=== PATIENT | female | born 1935 | race Caucasian/White ===

== ENCOUNTER 2020-08-15 11:21 | Inpatient (IN) | payer OTHER ==
[2020-08-15] MEDS ORDERED: CEFTRIAXONE/SWI 1gm 1 GM/10 ML SYR ONE (12:45)
[2020-08-15] MEDS ORDERED: FAMOTIDINE 20 MG/2 ML VIAL IV ONE (12:45)
[2020-08-15] MEDS ORDERED: HYDROCORTISONE SUC 100 MG INJ ONE (12:45)
[2020-08-15] MEDS ORDERED: NA CHLORIDE 0.9% 1,000 ML ONE (12:45)
--- NOTE | 2020-08-15 12:48 | RAD REPORT ---
EXAM DESCRIPTION: CT - Head C Spine Cap Wo Con - 08/15/2020 12:20 pm CLINICAL HISTORY: Trauma, head and neck injury. Chest, abdomen and pelvis pain. PAIN COMPARISON: No comparisons TECHNIQUE: CT head without contrast. CT cervical spine without contrast with coronal and sagittal reformatted images. CT chest, abdomen and pelvis without contrast with coronal and sagittal reformatted images of the [facility] [place]. All CT scans are performed using dose optimization technique as appropriate and may include automated exposure control or mA/KV adjustment according to patient size. FINDINGS: CT HEAD WITHOUT CONTRAST: No intracranial hemorrhage, hydrocephalus or extra-axial fluid collection. Moderate generalized brain atrophy. No areas of brain edema or midline shift. Small amount fluid is seen in left maxillary antrum in the sphenoid sinus. Both mastoid air cells are clear. The calvarium is intact. CT CERVICAL SPINE WITHOUT CONTRAST: No fracture or subluxation. Prominent degenerative changes present lower cervical spine. The preverte bral soft tissues are normal in thickness.Areas of bony lucency and sclerosis noted. CT CHEST, ABDOMEN, PELVIS WITHOUT CONTRAST: NOTE: Lack of contrast is a significant limitation in the assessment of trauma related findings. Spec ifically, solid organ, vascular and bowel evaluation is significantly limited. Poorly defined areas of tree-in-bud opacity seen posterior right upper lobe and to a greater extent p osterior left upper lobe noted. Areas of nodularity also seen superior segment left lower lobe. These likely represent areas aspiration or pneumonia.Small left effusion. A mass is present in left breast 5.3 x 3.2 cm extending to the chest wall. No evidence of intra-abdominal visceral injury, free fluid or free air is seen within the above detai led limitations. Moderate retained stool in the rectum. Extensive lytic sclerotic lesions throughout the skeleton compatible extensive bony metastasis. IMPRESSION: Left breast malignancy with extensive bony metastatic disease suspected. Areas of interstitial opacities in both lungs, worse on the left, with a left pleural effusion likely represent aspiration or pneumonia.
[2020-08-15] MEDS ORDERED: FOLIC ACID 1 MG, MULTIVITAMINS INJ 10 ML, THIAMINE HCL 100 MG in NA CHLORIDE 0.9% 1,000 ML IV ONE (13:00)
--- NOTE | 2020-08-15 13:12 | RAD REPORT ---
EXAM DESCRIPTION: RAD - Chest Single View - 08/15/2020 12:41 pm CLINICAL HISTORY: COUGH Chest pain. COMPARISON: No comparisons FINDINGS: Portable technique limits examination quality. Reticular opacities are present in both lungs, greater on the left, likely representing atypical infe ction or aspiration. The heart is normal in size. Areas of sclerosis and lucency seen throughout the osseous skeleton, suspicious for metastatic disease.
[2020-08-15 13:20] LABS: Absolute Lymphocytes (CBC) 2.2 K/uL (0.7-4.9); Basophils % 0.5 % (0-1.3); Hematocrit 44.4 % (36.0-45.0); Lymphocytes % 14.4 % (15.3-44.8); MPV 8.6 fL (7.6-11.3); RBC Red Blood Cell Count 5.18 M/uL (3.86-4.86)
--- NOTE | 2020-08-15 13:54 | EDPHYS ---
Physician Documentation [facility] Name: Margot Galindo Age: 84 yrs Sex: Female : 1935 Arrival Date: 08/15/2020 Time: 11:32 Bed 18 Private MD: JOSIAS Physician Philippe Goode HPI: 08/15 12:09 This 84 yrs old Female presents to ER via EMS with complaints of on floor 7 edgar days, dehydrated, infected and left breast cancer. 12:09 The patient presents with an abscess of the left breast. Description: The affected area edgar is large, confluent, draining, erythematous, tense. 12:10 Onset: The symptoms/episode began/occurred 8 day(s) ago. Possible cause(s): unknown. edgar Modifying factors: the symptoms are alleviated by nothing, the symptoms are aggravated by nothing. Historical: - Allergies: 11:44 PENICILLINS; ss - Home Meds: 14:55 None [Active]; vg1 - PMHx: 14:55 None; vg1 - PSHx: 11:44 marcy cataract surgery; neck surgery; ss - Immunization history:: Adult Immunizations unknown. - Social history:: Smoking status: Patient denies any tobacco usage or history of. ROS: 12:11 Constitutional: Negative for fever, chills, and weight loss, Eyes: Negative for injury, edgar pain, redness, and discharge, ENT: Negative for injury, pain, and discharge, Neck: Negative for injury, pain, and swelling, Cardiovascular: Negative for chest pain, palpitations, and edema, Respiratory: Negative for shortness of breath, cough, wheezing, and pleuritic chest pain, Back: Negative for injury and pain, : Negative for injury, bleeding, discharge, and swelling, Skin: Negative for injury, rash, and discoloration, Psych: Negative for depression, anxiety, suicide ideation, homicidal ideation, and hallucinations, Allergy/Immunology: Negative for hives, rash, and allergies, Endocrine: Negative for neck swelling, polydipsia, polyuria, polyphagia, and marked weight changes. 12:11 Abdomen/GI: Positive for anorexia. 12:11 Skin: Positive for swelling, of the left breast. Exam: 12:11 Head/Face: Normocephalic, atraumatic. Eyes: Pupils equal round and reactive to light, edgar extra-ocular motions intact. Lids and lashes normal. Conjunctiva and sclera are non-icteric and not injected. Cornea within normal limits. Periorbital areas with no swelling, redness, or edema. ENT: Nares patent. No nasal discharge, no septal abnormalities noted. Tympanic membranes are normal and external auditory canals are clear. Oropharynx with no redness, swelling, or masses, exudates, or evidence of obstruction, uvula midline. Mucous membranes moist. Neck: Trachea midline, no thyromegaly or masses palpated, and no cervical lymphadenopathy. Supple, full range of motion without nuchal rigidity, or vertebral point tenderness. No Meningismus. Abdomen/GI: Soft, non-tender, with normal bowel sounds. No distension or tympany. No guarding or rebound. No evidence of tenderness throughout. Back: No spinal tenderness. No costovertebral tenderness. Full range of motion. Skin: Warm, dry with normal turgor. Normal color with no rashes, no lesions, and no evidence of cellulitis. Psych: Awake, alert, with orientation to person, place and time. Behavior, mood, and affect are within normal limits. 12:11 Constitutional: The patient appears emaciated, frail, lethargic. 12:11 Chest/axilla: Inspection: left breast fungating mass, necroitic, foul smelling, firm and fixed. 12:11 Cardiovascular: Rate: tachycardic, Rhythm: regular, Pulses: Pulses are 3+ in bilateral radial, brachial, femoral, popliteal, posterior tibial and and dorsalis pedis arteries.. Heart sounds: normal, Edema: is not appreciated, JVD: is not appreciated. 12:11 Musculoskeletal/extremity: Extremities: noted in the right arm, left arm, right leg and left leg: decreased ROM, Circulation is intact in all extremities. Sensation intact. Compartment Syndrome exam of affected extremity: is normal. 12:46 ECG was reviewed by the Attending Physician. [facility] Vital Signs: 11:44 BP 139 / 109; Pulse 121; Resp 22; Temp 97.0(TE); ss 12:00 BP 129 / 63; Pulse 63; Resp 24; Pulse Ox 86% on R/A; vg1 13:00 BP 119 / 47; Pulse 83; Resp 24; Pulse Ox 88% on R/A; vg1 13:45 BP 173 / 74; Pulse 80; Resp 22; Pulse Ox 85% on 3 lpm NC; vg1 14:00 BP 177 / 63; Pulse 56; Resp 26; Pulse Ox 100% on 15% Non-rebreather mask; vg1 14:30 BP 192 / 77; Pulse 87; Resp 24; Pulse Ox 99% on 15% Non-rebreather mask; vg1 15:00 BP 143 / 65; Pulse 90; Resp 28; Pulse Ox 99% on 15% Non-rebreather mask; vg1 15:30 BP 141 / 62; Pulse 108; Resp 28; Pulse Ox 100% on 15% Non-rebreather mask; vg1 16:00 BP 146 / 66; Pulse 111; Resp 34; Pulse Ox 98% on 15% Non-rebreather mask; vg1 MDM: 11:37 Patient medically screened. edgar 12:15 Differential diagnosis: cellulitis. Differential Diagnosis altered mental status, edgar sepsis. Differential diagnosis: contusion, multiple trauma. Data reviewed: vital signs, nurses notes, EMS record, lab test result(s), EKG, radiologic studies, CT scan, plain films. Data interpreted: transit mixer operator: rate is 121 beats/min, rhythm is regular, Pulse oximetry: on room air is 95 %. Test interpretation: by ED physician or midlevel provider: ECG, plain radiologic studies. Counseling: I had a detailed discussion with the patient and/or guardian regarding: the historical points, exam findings, and any diagnostic results supporting the discharge/admit diagnosis, lab results, radiology results, the need for further work-up and treatment in the hospital. 08/15 12:02 Order name: Basic Metabolic Panel; Complete Time: 15: [facility] 08/15 12:02 Order name: CBC with Diff [facility] 08/15 12:02 Order name: LFT's; Complete Time: 15:08 [facility] 08/15 12:02 Order name: Magnesium; Complete Time: 15:08 [facility] 08/15 12:02 Order name: NT PRO-BNP; Complete Time: 15: [facility] 08/15 12:02 Order name: PT-INR; Complete Time: 15:08 [facility] 08/15 12:02 Order name: Troponin (emerg Dept Use Only); Complete Time: 15: [facility] 08/15 12:02 Order name: CK; Complete Time: 15: [facility] 08/15 12:02 Order name: Ckmb; Complete Time: 15:08 [facility] 08/15 12:02 Order name: Lipase; Complete Time: 15:08 [facility] 08/15 12:02 Order name: Type And Screen [facility] 08/15 12:02 Order name: Blood Culture Adult (2) [facility] 08/15 12:02 Order name: Lactate; Complete Time: 14:02 [facility] 08/15 12:53 Order name: Glucose, Ancillary Testing; Complete Time: 13:39 EDMS 08/15 14:02 Order name: ABG [facility] 08/15 15:40 Order name: Urinalysis EDMS 08/15 15:41 Order name: CBC with Automated Diff EDMS 08/15 15:41 Order name: CBC with Automated Diff EDMS 08/15 15:41 Order name: Comprehensive Metabolic Panel EDMS 08/15 15:41 Order name: Comprehensive Metabolic Panel EDMS 08/15 15:41 Order name: Lactate EDMS 08/15 15:41 Order name: Lactate EDMS 08/15 15:41 Order name: Magnesium EDMS 08/15 15:41 Order name: Magnesium EDMS 08/15 15:41 Order name: Phosphorus EDMS 08/15 15:41 Order name: Phosphorus EDMS 08/15 15:41 Order name: Protime (+INR) EDMS 08/15 15:41 Order name: Protime (+INR) EDMS 08/15 15:41 Order name: PTT, Activated Partial Thromb EDMS 08/15 15:41 Order name: PTT, Activated Partial Thromb EDMS 08/15 12:02 Order name: XRAY Chest (1 view); Complete Time: 13:39 [facility] 08/15 12:02 Order name: EKG; Complete Time: 12:03 [facility] 08/15 12:02 Order name: Cardiac monitoring; Complete Time: 12:46 [facility] 08/15 12:02 Order name: EKG - Nurse/Tech; Complete Time: 12:46 [facility] 08/15 12:02 Order name: IV Saline Lock; Complete Time: 16:16 [facility] 08/15 12:02 Order name: Labs collected and sent; Complete Time: 16:16 [facility] 08/15 12:02 Order name: O2 Per Protocol; Complete Time: 16:16 [facility] 08/15 12:02 Order name: O2 Sat Monitoring; Complete Time: 16:16 [facility] 08/15 12:02 Order name: CT Traumagram (Head C Spine CAP wo con); Complete Time: 13:39 [facility] 08/15 12:03 Order name: Blood Glucose Level; Complete Time: 12:46 [facility] 08/15 13:06 Order name: Labs - recollect needed: T\T\S recollect please; Complete Time: 16:16 eb 08/15 13:41 Order name: Garg; Complete Time: 15:24 [facility] 08/15 15:40 Order name: CONS Pharmacy Consult EDNE 08/15 15:40 Order name: CONS Pharmacy Consult EDMS 08/15 15:40 Order name: CONS Pharmacy Consult EDMS 08/15 15:40 Order name: Full Liquid EDNE 08/15 17:16 Order name: ABO/RH no charge EDNE 08/15 17:50 Order name: COVID-19 [facility] 08/15 18:14 Order name: CORONAVIRUS EDNE 08/15 18:38 Order name: Manual Differential EDNE 08/15 19:18 Order name: SARS-COV-2 RT PCR EDMS EC:46 Rate is 117 beats/min. Rhythm is irregularly irregular. QRS [place] is Normal. HI interval edgar is normal. QRS interval is normal. QT interval is normal. No Q waves. T waves are Normal. No ST changes noted. Clinical impression: Atrial Fibrillation. Interpreted by me. Reviewed by me. Administered Medications: 13:17 Drug: Rocephin 1 grams Route: IV; Rate: per protocol; Site: left antecubital; vg1 13:38 Follow up: Response: No adverse reaction vg1 15:25 Follow up: IV Status: Completed infusion vg1 13:17 Drug: NS 0.9% 1000 ml Route: IV; Rate: 1 bolus; Site: left antecubital; vg1 15:25 Follow up: IV Status: Completed infusion vg1 13:17 Drug: Pepcid 20 mg Route: IVP; Site: left antecubital; vg1 13:38 Follow up: Response: No adverse reaction vg1 13:17 Drug: Solu-CORTEF 100 mg Route: IVP; Site: left antecubital; vg1 13:38 Follow up: Response: No adverse reaction vg1 13:37 Drug: Banana Bag - (NS 0.9% 1000 ml, foLIC Acid 1 mg, Thiamine 100 mg, Multivitamin 1 vg1 amp) Route: IV; Rate: 125 ml/hr; Site: left antecubital; 17:07 Follow up: IV Status: Infusion continued upon admission 14:53 Drug: Clindamycin 900 mg Route: IVPB; Infused Over: 30 mins; Site: left antecubital; vg1 15:24 Follow up: IV Status: Completed infusion; IV Intake: 50ml vg1 15:24 Drug: morphine 2 mg {Note: rass 0.} Route: IVP; Site: left antecubital; vg1 08/16 01:35 Follow up: Response: No adverse reaction vg1 08/15 15:24 Drug: Zofran (Ondansetron) 4 mg Route: IVP; Site: left antecubital; vg1 16:30 Follow up: Response: No adverse reaction vg1 17:13 Follow up: Response: No adverse reaction vg1 Disposition: 08/15/20 13:53 Hospitalization ordered by Mustapha Luu for Inpatient Admission. Preliminary diagnosis are Weakness, Rhabdomyolysis, Dehydration, Malignant neoplasm of breast of unspecified site, female, Atrial fibrillation and flutter - with RVR, Pneumonia, unspecified organism - ASPIRATION, Acute kidney failure, Hypercalcemia, Non-ST elevation (NSTEMI) myocardial infarction, Do not resuscitate. - Bed requested for Telemetry/MedSurg (Inpatient). - Status is Inpatient Admission. vg1 - Condition is Serious. - Problem is new. - Symptoms are unchanged. Signatures: Dispatcher [employer] EDAlisson Nix RN RN dw Anderson, Corey, MD MD cha Smirch, Shelby, RN RN ss Botello, Elizabeth eb Garcia, Victoria RN RN vg1 Corrections: (The following items were deleted from the chart) 13:57 13:53 Hospitalization Ordered by Mustapha Luu MD for Inpatient Admission. Preliminary [facility] diagnosis is Weakness; Rhabdomyolysis; Dehydration; Malignant neoplasm of breast of unspecified site, female; Atrial fibrillation and flutter - with RVR. Bed requested for Telemetry/MedSurg (Inpatient). Status is Inpatient Admission. Condition is Serious. Problem is new. Symptoms are unchanged. [facility] 14:05 13:57 08/15/2020 13:53 Hospitalization Ordered by Mustapha Luu MD for Inpatient edgar Admission. Preliminary diagnosis is Weakness; Rhabdomyolysis; Dehydration; Malignant neoplasm of breast of unspecified site, female; Atrial fibrillation and flutter - with RVR; Pneumonia, unspecified organism - ASPIRATION. Bed requested for Telemetry/MedSurg (Inpatient). Status is Inpatient Admission. Condition is Serious. Problem is new. Symptoms are unchanged. [facility] 14:17 14:05 08/15/2020 13:53 Hospitalization Ordered by Mustapha Luu MD for Inpatient edgar Admission. Preliminary diagnosis is Weakness; Rhabdomyolysis; Dehydration; Malignant neoplasm of breast of unspecified site, female; Atrial fibrillation and flutter - with RVR; Pneumonia, unspecified organism - ASPIRATION; Acute kidney failure. Bed requested for Telemetry/MedSurg (Inpatient). Status is Inpatient Admission. Condition is Serious. Problem is new. Symptoms are unchanged. [facility] 15:10 14:17 08/15/2020 13:53 Hospitalization Ordered by Mustapha Luu MD for Inpatient edgar Admission. Preliminary diagnosis is Weakness; Rhabdomyolysis; Dehydration; Malignant neoplasm of breast of unspecified site, female; Atrial fibrillation and flutter - with RVR; Pneumonia, unspecified organism - ASPIRATION; Acute kidney failure; Hypercalcemia. Bed requested for Telemetry/MedSurg (Inpatient). Status is Inpatient Admission. Condition is Serious. Problem is new. Symptoms are unchanged. [facility] 17:06 15:10 08/15/2020 13:53 Hospitalization Ordered by Mustapha Luu MD for Inpatient ss Admission. Preliminary diagnosis is Weakness; Rhabdomyolysis; Dehydration; Malignant neoplasm of breast of unspecified site, female; Atrial fibrillation and flutter - with RVR; Pneumonia, unspecified organism - ASPIRATION; Acute kidney failure; Hypercalcemia; Non-ST elevation (NSTEMI) myocardial infarction; Do not resuscitate. Bed requested for Telemetry/MedSurg (Inpatient). Status is Inpatient Admission. Condition is Serious. Problem is new. Symptoms are unchanged. [facility] 20:13 17:06 08/15/2020 13:53 Hospitalization Ordered by Mustapha Luu MD for Inpatient Admission. Preliminary diagnosis is Weakness; Rhabdomyolysis; Dehydration; Malignant neoplasm of breast of unspecified site, female; Atrial fibrillation and flutter - with RVR; Pneumonia, unspecified organism - ASPIRATION; Acute kidney failure; Hypercalcemia; Non-ST elevation (NSTEMI) myocardial infarction; Do not resuscitate. Bed requested for [facility] ER HOLD. Status is Inpatient Admission. Condition is Serious. Problem is new. Symptoms are unchanged. ss 21:21 20:13 08/15/2020 13:53 Hospitalization Ordered by Mustapha Luu MD for Inpatient vg1 Admission. Preliminary diagnosis is Weakness; Rhabdomyolysis; Dehydration; Malignant neoplasm of breast of unspecified site, female; Atrial fibrillation and flutter - with RVR; Pneumonia, unspecified organism - ASPIRATION; Acute kidney failure; Hypercalcemia; Non-ST elevation (NSTEMI) myocardial infarction; Do not resuscitate. Bed requested for Telemetry/MedSurg (Inpatient). Status is Inpatient Admission. Condition is Serious. Problem is new. Symptoms are unchanged. dw
--- NOTE | 2020-08-15 13:54 | ER ---
Nurse's Notes [facility] Name: Margot Galindo Age: 84 yrs Sex: Female : 1935 Arrival Date: 08/15/2020 Time: 11:32 Bed 18 Private MD: Diagnosis: Weakness;Rhabdomyolysis;Dehydration;Malignant neoplasm of breast of unspecified site, female;Atrial fibrillation and flutter-with RVR;Pneumonia, unspecified organism-ASPIRATION;Acute kidney failure;Hypercalcemia;Non-ST elevation (NSTEMI) myocardial infarction;Do not resuscitate Presentation: 08/15 11:46 Chief complaint: EMS states: daughter had not heard from patient in a few days so she ss went to check on her and heard cries for help. Pt was found on the ground under a blanket. It is estimated she may have been there up to 8 days. Pt c/o pain to R shoulder and R hip area, but also states that she hurts everywhere. Coronavirus screen: Client denies travel out of the [place] in the last 14 days. Ebola Screen: Patient denies exposure to infectious person. Patient denies travel to an Ebola-affected area in the 21 days before illness onset. Initial Sepsis Screen:. Risk Assessment: Do you want to hurt yourself or someone else? Unable to obtain. Onset of symptoms is unknown. 11:46 Method Of Arrival: EMS: [facility] 11:46 Acuity: KALEB 2 ss 13:00 Initial Sepsis Screen: Does the patient meet any 2 criteria? RR > 20 per min. HR > 90 vg1 bpm. Yes Does the patient have a suspected source of infection? Yes: If YES to both, name of provider notified: Philippe Goode MD. Historical: - Allergies: 11:44 PENICILLINS; ss - Home Meds: 14:55 None [Active]; vg1 - PMHx: 14:55 None; vg1 - PSHx: 11:44 marcy cataract surgery; neck surgery; ss - Immunization history:: Adult Immunizations unknown. - Social history:: Smoking status: Patient denies any tobacco usage or history of. Screenin:35 Abuse screen: Denies threats or abuse. Nutritional screening: emaciated.. Tuberculosis vg1 screening: No symptoms or risk factors identified. Fall Risk Fall in past 12 months (25 points). No secondary diagnosis (0 pts). IV access (20 points). Ambulatory Aid- None/Bed Rest/Nurse Assist (0 pts). Gait- Weak (10 pts.). Mental Status- Overestimates/Forgets Limitations (15 pts.). Total Rosario Fall Scale indicates High Risk Score (45 or more points). Fall prevention measures have been instituted. Side Rails Up X 2 Placed Close to Nursing Station Frequent Obs/Assessments Occuring Family Present and informed to notify staff if the need to leave the bedside As available patient and family educated on Fall Prevention Program and Strategies. Assessment: 12:30 General: Appears uncomfortable, slender, emaciated, Behavior is calm, cooperative, vg1 Smells of urnine. 12:30 Pain: Complains of pain in left shoulder Pain currently is 10 out of 10 on a pain vg1 scale. Neuro: Level of Consciousness is awake, alert, obeys commands, Oriented to person, place. Cardiovascular: Capillary refill is > 3 seconds Patient's skin is warm and dry. Cardiovascular: Capillary refill in bilateral fingers. Respiratory: Airway is patent Respiratory effort is even, unlabored, Respiratory pattern is regular, tachypnea. GI: No signs and/or symptoms were reported involving the gastrointestinal system. : No signs and/or symptoms were reported regarding the genitourinary system. EENT: Nares are clear Oral mucosa is dry. Derm: Skin is fragile, with poor turgor Dime sized black mole on right breast; necrotic tissue on left breast. Musculoskeletal: Capillary refill is > 3 seconds, in bilateral fingers. 14:02 Reassessment: Patient O2 dropped to the 70's. Placed on non rebreather. Provider vg1 notified. 15:00 Reassessment: Went into room as car parker for Dr Luu to assess patients chest. vg1 15:25 Reassessment: Patient appears in no apparent distress at this time. No changes from vg1 previously documented assessment. 16:24 Reassessment: Patient appears in no apparent distress at this time. Resting with eyes vg1 closed. 20:30 Reassessment: Attempted to call report. Receiving nurse will call back. vg1 20:43 Reassessment: Report given to Balbir BAEZA vg1 Vital Signs: 11:44 BP 139 / 109; Pulse 121; Resp 22; Temp 97.0(TE); ss 12:00 BP 129 / 63; Pulse 63; Resp 24; Pulse Ox 86% on R/A; vg1 13:00 BP 119 / 47; Pulse 83; Resp 24; Pulse Ox 88% on R/A; vg1 13:45 BP 173 / 74; Pulse 80; Resp 22; Pulse Ox 85% on 3 lpm NC; vg1 14:00 BP 177 / 63; Pulse 56; Resp 26; Pulse Ox 100% on 15% Non-rebreather mask; vg1 14:30 BP 192 / 77; Pulse 87; Resp 24; Pulse Ox 99% on 15% Non-rebreather mask; vg1 15:00 BP 143 / 65; Pulse 90; Resp 28; Pulse Ox 99% on 15% Non-rebreather mask; vg1 15:30 BP 141 / 62; Pulse 108; Resp 28; Pulse Ox 100% on 15% Non-rebreather mask; vg1 16:00 BP 146 / 66; Pulse 111; Resp 34; Pulse Ox 98% on 15% Non-rebreather mask; vg1 ED Course: 11:32 Patient arrived in ED. ll1 11:36 Philippe Goode MD is Attending Physician. edgar 11:44 Michelle Hayes, RN is Primary Nurse. ll1 11:44 Arm band placed on right wrist. ss 11:57 Triage completed. ss 12:02 Primary Nurse role handed off by Michelle Hayes, RN vg1 12:02 Ginger Marie, RN is Primary Nurse. vg1 12:[address] via stretcher. vg1 12:20 CT Traumagram (Head C Spine CAP wo con) In Process Unspecified. EDMS 12:25 Patient moved back from CT. vg1 12:25 Xray at bedside. vg1 12:35 Patient has correct armband on for positive identification. Placed in gown. Bed in low vg1 position. Call light in reach. Side rails up X2. Adult w/ patient. 12:35 cardiac monitor on. Pulse ox on. NIBP on. Door closed. Warm blanket given. Pillow given.vg1 12:42 XRAY Chest (1 view) In Process Unspecified. EDMS 12:47 Blood Glucose 125. vg1 13:35 Second set of blood cultures drawn by ms. vg1 13:42 Mustapha Luu MD is Hospitalizing Provider. edgar 17:13 No provider procedures requiring assistance completed. Patient admitted, IV remains in vg1 place. 20:32 IV 20 g IV in L AC. vg1 Administered Medications: 13:17 Drug: Rocephin 1 grams Route: IV; Rate: per protocol; Site: left antecubital; vg1 13:38 Follow up: Response: No adverse reaction vg1 15:25 Follow up: IV Status: Completed infusion vg1 13:17 Drug: NS 0.9% 1000 ml Route: IV; Rate: 1 bolus; Site: left antecubital; vg1 15:25 Follow up: IV Status: Completed infusion vg1 13:17 Drug: Pepcid 20 mg Route: IVP; Site: left antecubital; vg1 13:38 Follow up: Response: No adverse reaction vg1 13:17 Drug: Solu-CORTEF 100 mg Route: IVP; Site: left antecubital; vg1 13:38 Follow up: Response: No adverse reaction vg1 13:37 Drug: Banana Bag - (NS 0.9% 1000 ml, foLIC Acid 1 mg, Thiamine 100 mg, Multivitamin 1 vg1 amp) Route: IV; Rate: 125 ml/hr; Site: left antecubital; 17:07 Follow up: IV Status: Infusion continued upon admission ss 14:53 Drug: Clindamycin 900 mg Route: IVPB; Infused Over: 30 mins; Site: left antecubital; vg1 15:24 Follow up: IV Status: Completed infusion; IV Intake: 50ml vg1 15:24 Drug: morphine 2 mg {Note: rass 0.} Route: IVP; Site: left antecubital; vg1 08/16 01:35 Follow up: Response: No adverse reaction vg1 08/15 15:24 Drug: Zofran (Ondansetron) 4 mg Route: IVP; Site: left antecubital; vg1 16:30 Follow up: Response: No adverse reaction vg1 17:13 Follow up: Response: No adverse reaction vg1 Intake: 15:24 IV: 50ml; Total: 50ml. vg1 Outcome: 13:53 Decision to Hospitalize by Provider. edgar 17:06 Admitted to ER Hold. Please see [facility] for further documentation. ss 17:06 critical 17:06 Instructed on the need for admit. 20:43 Admitted to Tele accompanied by nurse, via stretcher, room 210, with oxygen, Report vg1 called to Bablir SINGH 21:21 Patient left the ED. vg1 Signatures: Dispatcher [employer] EDPhilippe Armijo MD MD cha Smirch, Shelby, RN RN Ginger Rutherford RN RN vg1 Michelle Hayes RN RN ll1 Corrections: (The following items were deleted from the chart) 14:13 13:45 BP 173 / 74; Pulse 80bpm; Resp 22bpm; Pulse Ox 92% RA; vg1 vg1 15:27 13:18 Reassessment: vg1 vg1 15: 12:30 Derm: Skin is fragile, with poor turgor vg1 vg1
[2020-08-15 14:00] LABS: Albumin 2.8 g/dL (3.4-5.0); Bilirubin Direct 0.5 mg/dL (0-0.2); Magnesium 3.6 mg/dL (1.8-2.4); Potassium 4.4 mmol/L (3.5-5.1); Protein, Total 7.9 g/dL (6.4-8.2); Troponin (Emerg Dept Use Only) 1.91 ng/mL (0.0-0.045)
[2020-08-15 14:05] LABS: Protime INR 1.37
[2020-08-15 14:18] LABS: Arterial Blood Carboxyhemoglob 0.9 % (0-1.5); Blood Gas Oxyhemoglobin 95.6 % (94-97); Blood O2 Saturation 97.4 % (92-98.5)
[2020-08-15] MEDS ORDERED: CLINDAMYCIN 900MG/D5W 900 MG/50 ML IVPB IV ONE (14:39)
[2020-08-15] MEDS ORDERED: MORPHINE 2 MG/ML SYR ONE (15:18)
[2020-08-15] MEDS ORDERED: ONDANSETRON 4 MG/2 ML VIAL ONE (15:19)
[2020-08-15] MEDS ORDERED: ONDANSETRON 4 MG/2 ML VIAL IV PRN (15:35)
[2020-08-15] MEDS ORDERED: MORPHINE 4 MG/ML SYR IV PRN (15:35)
[2020-08-15] MEDS ORDERED: ACETAMINOPHEN 500 MG TAB PO PRN (15:35)
[2020-08-15] MEDS ORDERED: VANCOMYCIN/NS 1 gm 1 GM/250 ML BAG IVPB SCH (15:45)
[2020-08-15] MEDS ORDERED: Levofloxacin500mg IV 500 MG/100 ML BAG IV SCH (16:00)
[2020-08-15 18:37] LABS: Blood Morphology Comment NOT SEEN (NOT SEEN); Platelet Estimate ADEQ
[2020-08-15] MEDS ORDERED: LORazepam 2 MG/ML VIAL IV PRN (20:26)
[2020-08-15] MEDS: NA CHLORIDE 0.9% 1,000 ML IV SCH (21:57)
[2020-08-15 22:59] LABS: Urine Appearance TURBID; Urine Blood 3+ (NEG); Urine Color DK YELLOW; Urine Glucose NEGATIVE (NEG); Urine Protein TRACE (NEG); Urine Specific Gravity 1.015 (1.005-1.030); Urine pH 5.5 (5.0-7.0)
[2020-08-15] MEDS ORDERED: VANCOMYCIN 750 MG in NA CHLORIDE 0.9% 150 ML IVPB ONE (23:00)
[2020-08-15] MEDS ORDERED: NA CHLORIDE 0.9% 250 ML ONE (23:11)
[2020-08-15] MEDS ORDERED: VANCOMYCIN 1 GM/VIAL ONE (23:15)
[2020-08-15 23:19] LABS: Urine Bilirubin NEGATIVE (NEG); Urine Microscopic Reflex ORDER UMIC
[2020-08-15 23:46] VITALS: BMI 16.2
[2020-08-15 23:47] LABS: Urine Bacteria 20-50 /HPF (<20); Urine RBC >50 /HPF (NONE SEEN)
[2020-08-16] MEDS: NA CHLORIDE 0.9% 1,000 ML IV SCH (02:00)
[2020-08-16 05:06] LABS: Absolute Lymphocytes (CBC) 1.6 K/uL (0.7-4.9); Basophils % 0.3 % (0-1.3); Hematocrit 36.7 % (36.0-45.0); Lymphocytes % 13.9 % (15.3-44.8); MPV 8.7 fL (7.6-11.3); RBC Red Blood Cell Count 4.23 M/uL (3.86-4.86)
[2020-08-16 05:11] LABS: Protime INR 1.42
[2020-08-16 05:20] LABS: Albumin 2.1 g/dL (3.4-5.0); Bilirubin Total 0.5 mg/dL (0.2-1.0); Magnesium 3.2 mg/dL (1.8-2.4); Phosphorus 4.8 mg/dL (2.5-4.9); Potassium 4.6 mmol/L (3.5-5.1); Protein, Total 6.3 g/dL (6.4-8.2)
--- NOTE | 2020-08-16 06:53 | P.HP ---
Certification for Inpatient Patient admitted to: Inpatient With expected LOS: >2 Midnights Patient will require the following post-hospital care: None Practitioner: I am a practitioner with admitting privileges, knowledge of patient current condition, hospital course, and medical plan of care. Services: Services provided to patient in accordance with Admission requirements found in Title 42 Section 412.3 of the Code of Federal Regulations Patient History Date of Service: 08/15/20 Reason for admission: necrotic breast cancer with metastasis; acute renal failure; hypercalcemia History of Present Illness: Patient is an 84-year-old female who was admitted to the hospital after being found lethargic and difficult to arouse by her daughter. Her daughter had talked to her around [place] and she noted that her mother was really not herself. She was not feeling well and she decided to call her mother again and she was speaking gibberish. She decided to come check on her. She lives about 90 minutes away. When she arrived she found her mother in bed unresponsive. She had seen her mom in about a year and she had lost a lot of weight and was very debilitated. She called 911 and had her mother brought into the hospital. In the emergency room patient had a CT scan which showed a necrotic left-sided breast tissue with bone metastasis. Patient had severe hypercalcemia and acute renal failure. Patient also had elevated troponin. 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 She did not really like to go to a doctor and had not been in quite a long time. She does not feel her mother would want to be treated aggressively with current findings. She will speak to her brother and she is wanting to pursue hospice care in the morning. We will gently hydrate and keep patient's pain controlled. Patient prognosis is very poor. Palliative care and possibly hospice care after patient's son gets to visit with her. Allergies Penicillins Allergy (Verified 08/15/20 17:22) Itching/Hives/Rash - Past Medical/Surgical History Past Medical History: Unable to obtain Past Surgical History: Unable to obtain - Family History Father Family History: Reviewed- Non-Contributory - Social History Alcohol use: No CD- Drugs: No Review of Systems is unable to be obtained Physical Examination - Vital Signs Temperature: 98.4 F Blood Pressure: 145/65 Pulse: 113 Respirations: 20 Pulse Ox (%): 97 - Physical Exam General: Confused, Unresponsive HEENT: Atraumatic, PERRLA, Mucous membr. moist/pink, EOMI, Sclerae nonicteric Neck: Supple, 2+ carotid pulse no bruit, No LAD, Without JVD or thyroid abnormality Respiratory: Diminished, Crackles/rales Cardiovascular: Regular rate/rhythm, Normal S1 S2, Systolic murmur Gastrointestinal: Normal bowel sounds, Soft and benign, Non-distended, No tenderness Musculoskeletal: No tenderness Integumentary: No rashes Neurological: Abnormal gait, Abnormal speech, Abnormal strength, Abnormal tone - Studies Laboratory Data (last 24 hrs) 08/15/20 13:00: PT 16.1 H, INR 1.37 08/15/20 13:00: WBC 15.3 H, Hgb 14.3, Hct 44.4, Plt Count 391 08/15/20 13:00: Sodium 154 H, Potassium 4.4, BUN 135 H, Creatinine 2.51 H, Glucose 127 H, Magnesium 3.6 H*, Total Bilirubin 1.0, AST 199 H, ALT 56, Alkaline Phosphatase 473 H, Lipase 519 H Female Exam - Breasts Breasts: Asymmetrical, Masses/nodules ( Left-sided necrotic breast mass) Assessment & Plan - Problems (Diagnosis) (1) Breast cancer metastasized to bone Current Visit: Yes Status: Acute (2) Fat necrosis of left breast Current Visit: Yes Status: Acute (3) DIVYA (acute kidney injury) Current Visit: Yes Status: Acute (4) Hypercalcemia Current Visit: Yes Status: Acute (5) Elevated troponin Current Visit: Yes Status: Acute (6) Hypernatremia Current Visit: Yes Status: Acute (7) UTI (urinary tract infection) Current Visit: Yes Status: Acute (8) Elevated lipase Current Visit: Yes Status: Acute (9) Aspiration pneumonia Current Visit: Yes Status: Acute - Plan Plan: 1.Gentle hydration 2. Pain control 3. Anxiolytics 4. Monitor renal function closely 5. Arrangements for palliative care/hospice care in the morning 6. Monitor electrolytes including sodium and calcium 7. Strict hemodynamics 8. GI DVT prophylaxis Discharge Plan: Other (hospice) Plan to discharge in: 24 Hours - Advance Directives Does patient have a Living Will: No Does patient have a Durable POA for Healthcare: No - Code Status/Comfort Care Comfort Measures: Hospice Care Critical Care: No Time Spent Managing PTS Care (In Minutes): 45
[2020-08-16] MEDS ORDERED: D5W 1,000 ML IV SCH (07:00)
[2020-08-16] MEDS ORDERED: ENOXAPARIN 30 MG/0.3 ML SQ SCH (09:00)
[2020-08-16 10:15] VITALS: BP 158/71; TEMP 99.5
--- NOTE | 2020-08-16 10:30 | EKG ---
Test Date: 2020-08-15 Test Time: 12:40:31 Mechanic Driver: [place] MEASUREMENT RESULTS: Intervals: Rate: 117 SD: QRSD: 84 QT: 318 QTc: 443 [place]: P: SD: QRS: 84 T: 158 INTERPRETIVE STATEMENTS: Atrial fibrillation with rapid ventricular response Lateral infarct, age undetermined Abnormal ECG No previous ECG available for comparison Electronically Signed On 08-16-20 10:27:58 DORMITORY SUPERVISOR by Emeka Mcintosh
[2020-08-16] MEDS ORDERED: MORPHINE 2 MG/ML SYR IV PRN (12:02)
--- NOTE | 2020-08-16 12:08 | P.PN ---
Subjective Date of Service: 08/16/20 Primary Care Provider: none Chief Complaint: necrotic breast cancer with metastasis; acute renal failure; hypercalcemia Subjective: Other (appears poor in health) Physical Examination - Vital Signs Temperature: 99.5 F Blood Pressure: 158/71 Pulse: 113 Respirations: 20 Pulse Ox (%): 98 - Physical Exam General: Alert, Cachectic, Disheveled, Other (Muscle wasting throughout) Neck: Supple Respiratory: Clear to auscultation bilaterally Cardiovascular: Abnormal pulses (sinus tachy) Integumentary: Other (Necrotic mass to the breast left-sided) Neurological: Other (Patient appears malnourished), Abnormal strength (Poor strength throughout) - Studies Laboratory Data (last 24 hrs) 08/15/20 13:00: PT 16.1 H, INR 1.37 08/15/20 13:00: WBC 15.3 H, Hgb 14.3, Hct 44.4, Plt Count 391 08/15/20 13:00: Sodium 154 H, Potassium 4.4, BUN 135 H, Creatinine 2.51 H, Glucose 127 H, Magnesium 3.6 H*, Total Bilirubin 1.0, AST 199 H, ALT 56, Alkaline Phosphatase 473 H, Lipase 519 H Medications List Reviewed: Yes Assessment & Plan Discharge Plan: Other (Inpatient hospice) Plan to discharge in: 24 Hours Physician Review Additional Text: Impression: Left breast mass with necrosis and extension to bone secondary to stage IV breast cancer with metastasis to the bone Severe malnutrition Acute renal failure with Hypercalcemia and hypernatremia Bilateral pneumonia likely aspiration UTI Plan: Patient was admitted. Case discussed in detail with son and family. Patient has left breast mass with necrosis and extension and to the bone. Suspect breast cancer stage IV with metastatic disease. Patient does not want any workup or treatment for this. Advanced care planning address in detail. Recommend inpatient hospice. This was discussed in detail with son. Son has already spoken to his sister. Both in agreement. Will pursue inpatient hospice. Comfort measures only. Discontinue IV fluids, IV antibiotic therapy. Will provide medication for pain and anxiety. Advanced care planning-30 min. Time Spent Managing Pts Care (In Minutes): 55
[2020-08-16 13:30] VITALS: O2SAT 97
--- NOTE | 2020-08-16 20:54 | P.DS ---
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 Hospital Course: Patient was admitted with left breast mass with necrosis and extension and to the bone. Suspect breast cancer stage IV with metastatic disease. Patient does not want any workup or treatment for this. Advanced care planning address in detail. Recommend inpatient hospice. This was discussed in detail with son. Son has already spoken to his sister. Both in agreement. Will pursue inpatient hospice. Comfort measures only. Discontinue IV fluids, IV antibiotic therapy. Will provide medication for pain and anxiety. Advanced care planning-30 min. Vital Signs/Physical Exam: Temp Pulse Resp BP Pulse Ox 99.5 F 113 H 20 158/71 H 98 08/16/20 12:11 08/16/20 12:11 08/16/20 12:11 08/16/20 12:11 08/16/20 12:11 General: Alert HEENT: Atraumatic Neck: Supple Respiratory: Clear to auscultation bilaterally Cardiovascular: Abnormal pulses (tachycardia) Integumentary: Other (necrotic mass to the breast) Neurological: Normal speech, Normal strength at 5/5 x4 extr, Normal tone Laboratory Data at Discharge: WBC 11.6 K/uL (4.3-10.9) H D 08/16/20 04:32 Hgb 11.5 g/dL (12.0-15.0) L D 08/16/20 04:32 Hct 36.7 % (36.0-45.0) D 08/16/20 04:32 Plt Count 280 K/uL (152-406) D 08/16/20 04:32 PT 16.6 SECONDS (9.5-12.5) H 08/16/20 04:32 INR 1.42 08/16/20 04:32 APTT 24.2 SECONDS (24.3-36.9) L 08/16/20 04:32 Sodium 158 mmol/L (136-145) H 08/16/20 04:32 Potassium 4.6 mmol/L (3.5-5.1) 08/16/20 04:32 BUN 127 mg/dL (7-18) H 08/16/20 04:32 Creatinine 2.11 mg/dL (0.55-1.3) H 08/16/20 04:32 Glucose 93 mg/dL (74-106) 08/16/20 04:32 Phosphorus 4.8 mg/dL (2.5-4.9) 08/16/20 04:32 Magnesium 3.2 mg/dL (1.8-2.4) H 08/16/20 04:32 Total Bilirubin 0.5 mg/dL (0.2-1.0) 08/16/20 04:32 AST 117 U/L (15-37) H 08/16/20 04:32 ALT 45 U/L (12-78) 08/16/20 04:32 Alkaline Phosphatase 425 U/L (45-117) H 08/16/20 04:32 Lipase 519 U/L (73-393) H 08/15/20 13:00 Home Medications: NK [No Home Meds] 08/16/20 Patient Discharge Instructions: Patient admitted to inpatient hospice. Comfort measures initiated. Followup: Unknown,U [Primary Care Provider] - Time spent managing pt's care (in minutes): 55
[2020-08-17] MEDS ORDERED: VANCOMYCIN 750 MG in NA CHLORIDE 0.9% 150 ML IVPB SCH (09:00)
== END 2020-08-16 18:06 | disposition hospice, inpatient (51) | DRG 597 ==
LOC: ER 11:21 → ERHOLD 15:36 → 2ND 20:46
PROVIDERS: ADMIT Hospitalist; ATTEND Family Medicine
DX: C50.912 Malignant neoplasm of unspecified site of left female breast (principal); J69.0 Pneumonitis due to inhalation of food and vomit; E43 Unspecified severe protein-calorie malnutrition; C79.51 Secondary malignant neoplasm of bone; N17.9 Acute kidney failure, unspecified; E87.0 Hyperosmolality and hypernatremia; N39.0 Urinary tract infection, site not specified; Z68.1 Body mass index [BMI] 19.9 or less, adult; N64.1 Fat necrosis of breast; E83.52 Hypercalcemia; R00.0 Tachycardia, unspecified; R77.8 Other specified abnormalities of plasma proteins; Z66 Do not resuscitate; Z88.0 Allergy status to penicillin; Z20.822 Contact with and (suspected) exposure to COVID-19
CPT/HCPCS: 36415; 70450; 71045; 71250; 72125; 80048; 80053; 80076; 81003; 81015; 82550; 82553; 82805; 82947; 83605; 83690; 83735; 83880; 84100; 84484; 85025; 85610; 85730; 86850; 86900; 86901; 87040; 87070; 87077; 87086; 87088; 87186; 87205; 93005; 96365; 96366; 96367; 96375; 99285; J0696; J1650; J1720; J2270; J2405; J3370; J3411; J7030; J7050; U0003

== ENCOUNTER 2020-08-16 17:04 | Inpatient (IN) | payer OTHER ==
[2020-08-16] MEDS ORDERED: ONDANSETRON 4 MG/2 ML VIAL IV PRN (18:27)
[2020-08-16] MEDS ORDERED: BISACODYL 10 MG RECTAL SUPP PR PRN (18:27)
[2020-08-16] MEDS ORDERED: ACETAMINOPHEN 650MG/RECT SUPP PR PRN (18:28)
[2020-08-16] MEDS ORDERED: LORazepam 2 MG/ML VIAL IV PRN (18:28)
[2020-08-16] MEDS ORDERED: MORPHINE 2 MG/ML SYR IV PRN (18:29)
[2020-08-16] MEDS ORDERED: MORPHINE 4 MG/ML SYR IV PRN (18:30)
[2020-08-16] MEDS ORDERED: SCOPOLAMINE HYDROBROMIDE PATCH TD SCH (18:45)
[2020-08-17] MEDS ORDERED: SCOPOLAMINE HYDROBROMIDE PATCH TD PRN (00:09)
[2020-08-17 01:54] VITALS: BMI 16.2
[2020-08-17 16:59] VITALS: O2SAT 94
[2020-08-17 20:42] VITALS: BP 134/63; TEMP 97.9
== END 2020-08-18 19:20 | disposition expired | DRG 951 ==
LOC: 2ND 17:04
PROVIDERS: ADMIT Internal Medicine Hematology & Oncology; ATTEND Internal Medicine Hematology & Oncology
DX: Z51.5 Encounter for palliative care (principal)